=== PATIENT | male | born 1960 | race Two or more races ===

== ENCOUNTER 2019-08-04 08:52 | Day surgery (SDC) | payer OTHER ==
[~2019-08-04 08:52] MED LIST: ISENTRESS400 MG PO
[2019-08-04] MEDS ORDERED: PERCOCET 5-3251 EACH PO (13:04)
[2019-08-04] MEDS ORDERED: NEURONTIN600 M1 PO (13:05)
[2019-08-04] MEDS ORDERED: COLACE100 MG PO (13:07)
== END 2019-08-04 15:40 | disposition home or self-care (01) ==
LOC: CIR.AMB 08:52
PROVIDERS: ATTEND Surgery
DX: K40.90 Unilateral inguinal hernia, without obstruction or gangrene, not specified as recurrent (principal)

== ENCOUNTER 2019-12-30 14:33 | Inpatient (IN) | payer OTHER ==
[~2019-12-30] VITALS: Ht 22.9 cm; Wt 5.0 kg
[~2019-12-30 14:33] MED LIST changes: +COLACE100 MG PO; +NEURONTIN600 M1 PO; +PERCOCET 5-3251 EACH PO
[2019-12-30] MEDS ORDERED: DISCOVISC DISP S1 ML (15:21)
--- NOTE | 2019-12-30 15:23 | NUR ---
SE RECIBE PTE ALERTA Y ORIENTADO X3,REFIERE TENER DENGUE,REFIERE SENTIRSE DEBIL,PTE REFIERE VENIR PARA HACERSE UN CBC ,UTILIZAR MEDIDAS UNIVERSALES.
--- NOTE | 2019-12-30 17:48 | NUR ---
MS MEI ORIENTA PTE SOBRE JANELLE DE MUESTRAS LAS CUALES SE EXTRAEN BAJO MEDIDAS ASEPTICAS,SE NOTIFICA PLACA PENDIENTE.
--- NOTE | 2019-12-30 23:04 | NUR ---
SE RECIBE PTE MASCULINO DEL TURNO ANTERIOR ALERTA Y ORIENTADO EN LAS JOSSELIN ESFERAS, CON BUEN PATRON RESPIRATORIO Y NO REFIERE DOLOR. VENOPUNCION PATENTE, EFREM DE EDEMA Y ERITEMA RECIBIENDO TERAPIA DE IVFS 0.9NSS BAJANDO A 150ML/HR. PENDIENTE CBC A LAS 6AM 12/30/19. CONTINUIDAD DE TRATAMIENTO. PTE EN PRIMO BAJA CON BARANDAS ELEVADAS Y TIMBRE ACCESIBLES CON FRENOS COLOCADOS POR SEGURIDAD.
--- NOTE | 2019-12-31 07:01 | NUR ---
SE RECIBE PAICENTE DE 59 ANOS DE EDAD ALERTA,ESTABLE Y ORIENTADO.SE EDUCA SOBRE TRATAMIENTO QUE SE LE REALIZARA EN EL [facility] ENTENDER.SE MANTIENE BAJO OBSERVACIONES.
[2020-01-02] MEDS ORDERED: VITAMIN B-650 M1 PO (11:35)
[2020-01-02] MEDS ORDERED: Neurin-Sl Tablet Sl SL (11:35)
[2020-01-02] MEDS ORDERED: PROTONIX40 MG PO (11:35)
[2020-01-02] MEDS ORDERED: THIAMINE HCL100 MG PO (11:35)
[2020-01-02] MEDS ORDERED: ISENTRESS400 MG PO (11:35)
== END 2020-01-02 14:27 | disposition home or self-care (01) | DRG 866 ==
LOC: ER 14:33 → MEDI 12-31 10:43
PROVIDERS: ADMIT Internal Medicine; ATTEND Internal Medicine
DX: A90 Dengue fever [classical dengue] (principal); E86.0 Dehydration; D69.49 Other primary thrombocytopenia; Z20.828 Contact with and (suspected) exposure to other viral communicable diseases; Z21 Asymptomatic human immunodeficiency virus [HIV] infection status